=== PATIENT | female | born 1955 | race Hispanic/Latino ===

== ENCOUNTER 2017-06-16 08:27 | Outpatient (CLI) | payer OTHER ==
--- NOTE | 2017-06-16 09:51 | Mammography Report ---
Bilateral screening saurabh mammogram and standard 2-D images: On the tomograms to circumscribed small nodules are identified in the inferior right breast. These were also noted on the 2-D images. There is a biopsy marker in the left retroareolar region. No other significant findings are noted. The overall breast pattern is that of intermediate fibroglandular density in a symmetric distribution. The nodular densities on the right are not apparent this patient's prior exams in 2015 and 2016. No other significant changes. Impression: Interval development of right breast nodules. Recommendation: Right breast ultrasound. BI-RADS CATEGORY: 0 = Needs additional imaging evaluation ACR BI-RADS MAMMOGRAPHIC CODES: 0 = Needs additional imaging evaluation; 1 = Negative; 2 = Benign; 3 = Probably benign; 4 = Suspicious; 5 = Malignant; 6 = Known biopsy-proven malignancy COMMENT: 1. Dense breast tissue, i.e., adenosis, fibrocystic changes, etc., may obscure an underlying neoplasm. 2. Approximately 10% of cancers are not detected with mammography. 3. A negative mammography report should not delay biopsy if a clinically suspicious mass is present. A
== END 2017-06-16 08:28 | disposition home or self-care (01) ==
LOC: MAMMO 08:27
PROVIDERS: ATTEND Obstetrics & Gynecology
DX: Z12.31 Encounter for screening mammogram for malignant neoplasm of breast (principal)
CPT/HCPCS: 77063; G0202; 77067

== ENCOUNTER 2017-07-05 09:30 | Outpatient (CLI) | payer OTHER ==
--- NOTE | 2017-07-05 10:39 | Ultrasound Report ---
RIGHT BREAST ULTRASOUND: 07/05/17 09:30:00 CLINICAL: Recalled for nodular densities on screening mammogram. COMPARISON: 06/16/17 FINDINGS: Ultrasound of the right breast was performed and demonstrated2 structures which correlate with the mammographic densities. The largest is at 6 o'clock 3 cm from the nipple and measures 6 x 5 x 3 mm and the smaller is at 7 o'clock 3 cm from the nipple measuring 4 x 3 x 1 mm. Both appear to be complex cysts with internal echoes and minimal posterior enhancement. No suspicious features. IMPRESSION: Probably benign 6 mm and 4 mm complex cysts at 6 o'clock and 7 o'clock right breast respectively. BI-RADS 3 - - Probably Benign RECOMMENDATION: Six month followup right breast ultrasound.
== END 2017-07-05 09:31 | disposition home or self-care (01) ==
LOC: US 09:30
PROVIDERS: ATTEND Obstetrics & Gynecology
DX: N60.01 Solitary cyst of right breast (principal)

== ENCOUNTER 2018-01-02 08:38 | Outpatient (CLI) | payer OTHER ==
--- NOTE | 2018-01-02 09:38 | Ultrasound Report ---
RIGHT BREAST ULTRASOUND: 01/02/18 08:38:00 CLINICAL: Six-month followup COMPARISON: 06/16/17 digital breast tomosynthesis (DBT) screening and 07/05/17 right breast ultrasound FINDINGS: Ultrasound of the right breast demonstrated two stable lesions at 6 o'clock 3 cm from the nipple and at 7 o'clock 3 cm from nipple. The cyst at 6 o'clock is oval and smooth and measures 5 x 4 x 5 mm. It is anechoic on this exam. The smaller cyst at 7 o'clock measures 4 x 2 x 3 mm and has a few internal echoes. Margins are irregular on some images but when I scanned it appeared to be more oval and smooth. IMPRESSION: A benign cyst at 6 o'clock in a probably benign cyst at 7 o'clock 3 cm from the nipple. BI-RADS 3 - - Probably Benign RECOMMENDATION: A bilateral mammogram with digital breast tomosynthesis (DBT) and possible right breast ultrasound in six months. If the cysts are mammographically stable, ultrasound would not be necessary.
== END 2018-01-02 08:39 | disposition home or self-care (01) ==
LOC: SPVWC 08:38
PROVIDERS: ATTEND Obstetrics & Gynecology
DX: N60.01 Solitary cyst of right breast (principal)

== ENCOUNTER 2019-07-15 08:50 | Outpatient (CLI) | payer OTHER ==
--- NOTE | 2019-07-15 16:32 | Mammography Report ---
DIGITAL SCREENING MAMMOGRAM WITH CAD, 07/15/2019 INDICATION: Routine screening mammography. TECHNIQUE: Digital bilateral 2D mammography was obtained in the craniocaudal and mediolateral obliq ue projections. This examination was interpreted with the benefit of Computer-Aided Detection analysi s. COMPARISON: 07/12/2018 FINDINGS: Breast Density: There are scattered areas of fibroglandular density. There is no evidence of dominant mass, suspicious calcifications or architectural distortion in eithe r breast. IMPRESSION: No mammographic evidence of malignancy. Follow up recommendation: Routine yearly BI-RADS Category 1: Negative. A "normal" or negative report should not discourage follow up or biopsy of a clinically significant f inding. A written summary of these findings will be mailed to the patient. The patient will be entered into a mammography reporting system which will generate a reminder letter for the patient's next appointmen t at the appropriate interval. The [employer] recommends yearly mammograms starting at age 40 and continuing as l diana as a woman is in good health. Breast MRI is recommended for women with an approximate 20-25% or greater lifetime risk of breast cancer, including women with a strong family history of breast or ova fariba cancer or who have been treated for Hodgkin's disease. Signer Name: Shaheed Henderson MD Signed: 07/15/2019 4:28 PM Workstation Name: [id number]
== END 2019-07-15 08:51 | disposition home or self-care (01) ==
LOC: SPVWC 08:50
PROVIDERS: ATTEND Obstetrics & Gynecology
DX: Z12.31 Encounter for screening mammogram for malignant neoplasm of breast (principal)
CPT/HCPCS: 77067